=== PATIENT | male | born 1945 | race Caucasian/White ===

== ENCOUNTER 2016-12-18 01:25 | Emergency (ER) | payer OTHER, MEDICARE ==
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
== END 2016-12-18 02:50 | disposition home or self-care (01) ==
LOC: FB.ED 01:25
DX: S63.650A Sprain of metacarpophalangeal joint of right index finger, initial encounter (principal); Z88.5 Allergy status to narcotic agent; V69.9XXA Occupant (driver) (passenger) of heavy transport vehicle injured in unspecified traffic accident, initial encounter
CPT/HCPCS: 73090-RT; 73130-RT; 99283